=== PATIENT | female | born 1990 | race Hispanic/Latino ===

== ENCOUNTER 2019-05-31 23:18 | Emergency (ER) | payer SELFPAY ==
[~2019-05-31] VITALS: Ht 149.9 cm; Wt 54.4 kg
--- NOTE | 2019-06-01 01:00 | Diagnostic Imaging Report ---
EXAMINATION: CHEST SINGLE (PORTABLE) INDICATION: Cough COMPARISON: None FINDINGS: AP view TUBES and LINES: None. LUNGS: Lungs are well inflated. Mild central bronchial wall thickening. No consolidations. PLEURA: No pleural effusion or pneumothorax. HEART AND MEDIASTINUM: The cardiomediastinal silhouette is unremarkable. BONES AND SOFT TISSUES: No acute osseous lesion. Probably breast implants. UPPER ABDOMEN: No free air under the diaphragm. IMPRESSION: Findings can be seen with bronchitis. No consolidations. Signed by: Salvatore Yost DO on 06/01/2019 12:57 AM
[2019-06-01] MEDS ORDERED: ALBUTEROL/IPRATROPIUM 3 ML NEB NEB ONE (01:30)
[2019-06-01] MEDS ORDERED: TYLENOL WITH C1 EACH PO (02:12)
[2019-06-01] MEDS ORDERED: PREDNISONE20 MG PO (02:12)
[2019-06-01] MEDS ORDERED: TESSALON PERLE100 MG PO (02:12)
[2019-06-01] MEDS ORDERED: AZITHROMYCIN250 MG PO (02:12)
[2019-06-01] MEDS ORDERED: ACETAMINOPHEN/CODEINE 300MG - 30MG TAB PO ONE (03:15)
[2019-06-01 03:27] VITALS: BP 123/64
== END 2019-06-01 03:30 | disposition home or self-care (01) ==
LOC: ER 23:18
DX: R05 Cough (principal); J20.9 Acute bronchitis, unspecified; J01.10 Acute frontal sinusitis, unspecified
CPT/HCPCS: 71045; 94640; 99284